=== PATIENT | female | born 1980 | race Caucasian/White ===

== ENCOUNTER 2016-08-16 07:15 | Emergency (ER) | payer BC ==
[2016-08-16 07:35] VITALS: BP 126/88
[2016-08-16] MEDS ORDERED: Ketorolac 60 MG/2 ML SDV IM ONE (08:20)
--- NOTE | 2016-08-16 08:30 | EDM.PDOC ---
ED HPI GENERAL MEDICAL PROBLEM - General Chief Complaint: Back Pain or Injury Stated Complaint: RASH WITH HEADACHE & NECK PAIN Time Seen by Provider: 08/16/16 08:15 Source of Information: Reports: Patient, Family, RN Notes Reviewed History Limitations: Reports: No Limitations - History of Present Illness INITIAL COMMENTS - FREE TEXT/NARRATIVE: 35-year-old female presents emergency department day complaint of rash neck back pain headache and generalized feeling poorly, she states the rash started about 2 days prior it is predominantly on the left side of her chest it is tender to the touch it does not itch this time but it appears to be spreading head and back Pain Score (Numeric/FACES): 8 - Related Data Allergies Allergy/AdvReac Type Severity Reaction Status Date / Time bacitracin Allergy Rash Verified 08/16/16 07:37 [From Neosporin ([id number])] neomycin Allergy Rash Verified 08/16/16 07:37 [From Neosporin ([id number])] polymyxin B Allergy Rash Verified 08/16/16 07:37 [From Neosporin ([id number])] Home Meds: Home Meds Levothyroxine Sodium [Synthroid] 150 mcg PO DAILY 08/16/16 [History] Multivitamin [Multi-Vitamin Daily] 1 each PO DAILY 08/16/16 [History] levETIRAcetam [Keppra] 500 mg PO BID 08/16/16 [History] Past Medical History Gastrointestinal History: Reports: Celiac Disease Musculoskeletal History: Reports: Other (See Below) Other Musculoskeletal History: right arm fx Neurological History: Reports: Seizure Endocrine/Metabolic History: Reports: Hypothyroidism Hematologic History: Reports: Other (See Below) Other Hematologic History: factor 5 d Social & Family History - Tobacco Use Smoking Status *Q: Never Smoker - Caffeine Use Caffeine Use: Reports: Coffee - Alcohol Use Days Per Week of Alcohol Use: 4 Number of Drinks Per Day: 1 Total Drinks Per Week: 4 - Recreational Drug Use Recreational Drug Use: No ED ROS GENERAL - Review of Systems Review Of Systems: See Below Constitutional: Denies: Fever HEENT: Reports: No Symptoms Respiratory: Reports: No Symptoms Cardiovascular: Reports: No Symptoms GI/Abdominal: Reports: No Symptoms : Reports: No Symptoms Musculoskeletal: Reports: Neck Pain, Back Pain Skin: Reports: Rash Neurological: Reports: Headache ED EXAM, GENERAL - Physical Exam Exam: See Below Free Text/Narrative:: Examination of the integument system there is a rash that follows along the dermatome T4 on the left side of the body currently it is patches anterior and posterior there is the start of development of small vesicles rashes consistent with herpes varicella-zoster Course - Vital Signs Last Recorded V/S: Last Vital Signs Temp 96.5 F 08/16/16 07:51 Pulse 84 08/16/16 07:51 Resp 16 08/16/16 07:51 BP 126/88 08/16/16 07:51 Pulse Ox 97 08/16/16 07:51 - Orders/Labs/Meds Meds: Medications Discontinued Medications Generic Name Dose Route Start Last Admin Trade Name Freq PRN Reason Stop Dose Admin Ketorolac Tromethamine 60 mg 08/16/16 08:20 Toradol IM 08/16/16 08:21 ONETIME ONE Departure - Departure Time of Disposition: 08:32 Disposition: Home, Self-Care 01 Condition: Good Clinical Impression: Herpes zoster Qualifiers: Herpes zoster complications: without complications Qualified Code(s): B02.9 - Zoster without complications - Discharge Information Forms: ED Department Discharge Additional Instructions: Take full course of antiviral medication, use hydrocodone as needed for breakthrough pain, Please followup with your primary care provider in 5-7 days if not better, please call return to the emergency department with worsening of symptoms. - Assessment/Plan Plan: Assessment Acuity = acute Site and laterality = shingles exacerbation Etiology = herpes varicella-zoster Manifestations = pain, headache Location of injury = Home Lab values = none Plan Plan is treat with Valtrex 1 g by mouth 3 times a day 7 days and accommodation with hydrocodone total #20 for pain control as needed avoidance of young children without immunization Patient was in agreement with the plan all questions were answered, they were instructed to return to the emergency department or call for worsening symptoms. This note was dictated using [employer] voice recognition software please call with any questions.
== END 2016-08-16 08:51 | disposition home or self-care (01) ==
LOC: JP.ED 07:15 → MERGE 07:15 → JP.ED 08:51
DX: B02.9 Zoster without complications (principal); E03.9 Hypothyroidism, unspecified; Z79.899 Other long term (current) drug therapy; Z88.1 Allergy status to other antibiotic agents
CPT/HCPCS: 96372; 99284; J1885

== ENCOUNTER 2016-08-17 11:33 | Emergency (ER) | payer BC ==
[2016-08-17] MEDS ORDERED: Sodium Chloride 0.9% 10 ML Syringe FLUSH PRN (12:54)
[2016-08-17] MEDS ORDERED: Ondansetron 4 MG/2 ML SDV IVPUSH ONE (12:57)
[2016-08-17] MEDS ORDERED: HYDROmorphone 0.5 MG/0.5 ML Syringe IVPUSH ONE (12:57)
[2016-08-17] MEDS ORDERED: Lactated Ringers 1,000 ML IV SCH (13:00)
--- NOTE | 2016-08-17 13:06 | EDM.PDOC ---
ED HPI GENERAL MEDICAL PROBLEM - General Chief Complaint: General Stated Complaint: HEAD/NECK PAIN/NAUSEA/VOMITING Time Seen by Provider: 08/17/16 12:48 Source of Information: Reports: Patient, Family, RN Notes Reviewed History Limitations: Reports: No Limitations - History of Present Illness INITIAL COMMENTS - FREE TEXT/NARRATIVE: 35-year-old female presents emergency department today with increasing neck pain and headache pain, she was in the ED yesterday with development of a rash that is probably in the T4 recent diagnosis of shingles exacerbation treatment of Valtrex and hydrocodone. She states the rash has progressed slightly but she is tolerating that but now she has a severe headache rates it 10 out of 10 with neck pain she can place her chin on her chest but it causes exquisite pain she is also nauseated she denies any overt fevers but she has had chills Headache Pain Score (Numeric/FACES): 10 - Related Data Allergies Allergy/AdvReac Type Severity Reaction Status Date / Time bacitracin Allergy Rash Verified 08/16/16 07:37 [From Neosporin ([id number])] neomycin Allergy Rash Verified 08/16/16 07:37 [From Neosporin ([id number])] polymyxin B Allergy Rash Verified 08/16/16 07:37 [From Neosporin ([id number])] Home Meds: Home Meds Levothyroxine Sodium [Synthroid] 150 mcg PO DAILY 08/16/16 [History] Multivitamin [Multi-Vitamin Daily] 1 each PO DAILY 08/16/16 [History] levETIRAcetam [Keppra] 500 mg PO BID 08/16/16 [History] Past Medical History Gastrointestinal History: Reports: Celiac Disease Musculoskeletal History: Reports: Other (See Below) Other Musculoskeletal History: right arm fx Neurological History: Reports: Seizure Endocrine/Metabolic History: Reports: Hypothyroidism Hematologic History: Reports: Other (See Below) Other Hematologic History: factor 5 d Social & Family History - Tobacco Use Smoking Status *Q: Never Smoker - Caffeine Use Caffeine Use: Reports: Coffee - Alcohol Use Days Per Week of Alcohol Use: 4 Number of Drinks Per Day: 1 Total Drinks Per Week: 4 - Recreational Drug Use Recreational Drug Use: No ED ROS GENERAL - Review of Systems Review Of Systems: See Below Constitutional: Reports: Chills. Denies: Fever HEENT: Reports: No Symptoms Respiratory: Reports: No Symptoms Cardiovascular: Reports: No Symptoms GI/Abdominal: Reports: Nausea : Reports: No Symptoms Musculoskeletal: Reports: Neck Pain Skin: Reports: Rash Neurological: Reports: Headache ED EXAM, GENERAL - Physical Exam Exam: See Below Free Text/Narrative:: General: Female moderate discomfort secondary to pain, alert and oriented x3 HEENT: head is atraumatic normocephalic, eyes pupils equal round reactive to light, sclera clear no conjunctivitis appreciated. Nose no septal deviation, nares are clear, no blood present. Mouth mucosa is moist and pink no erythema or exudate noted in soft palate, tongue is midline uvula is midline, dentition is intact. Neck: Supple no thyromegaly no tracheal deviation. Pain is elicited with flex station of the neck Nodes: Cervical nodes subclavicular nodes nontender no palpable lymphadenopathy noted. Lungs: clear to auscultation bilaterally with symmetrical respirations, no adventitious noise appreciated. CV: Regular rate and rhythm S1 and S2 appreciated no murmurs rubs or gallops noted. Abdomen: Soft, nontender, no palpable masses or organomegaly appreciated, no distention no guarding bowel sounds are present, . Neuro: Cranial nerves II through XII grossly intact Skin: Varicella-zoster type rash T4 region Extremities: No lower extremity edema appreciated, pedal pulse is +2. Course - Vital Signs Last Recorded V/S: Last Vital Signs Temp 100.4 F 08/17/16 16:54 Pulse 78 08/17/16 16:54 Resp 16 08/17/16 16:54 BP 119/73 08/17/16 16:54 Pulse Ox 99 08/17/16 16:54 - Orders/Labs/Meds Orders: Active Orders 24 hr Category Date Time Status Peripheral IV Care [RC] . DIRECTED Care 08/17/16 12:54 Active Head wo Cont [CT] Stat Exams 08/17/16 12:57 Taken CULTURE BLOOD [BC] Urgent Lab 08/17/16 13:00 Received CULTURE BLOOD [BC] Urgent Lab 08/17/16 13:10 Received Lactated Ringers [Ringers, Lactated] 1,000 ml Med 08/17/16 13:00 Active IV ASDIRECTED Sodium Chloride 0.9% [Saline Flush] Med 08/17/16 12:54 Active 10 ml FLUSH ASDIRECTED PRN Vancomycin 1,000 mg Med 08/17/16 16:28 Active Dextrose 5% in Water 250 ml IV ONETIME cefTRIAXone [Rocephin] 2 gm Med 08/17/16 16:30 Active Sodium Chloride 0.9% [Normal Saline] 50 ml IV Q24H Blood Culture x2 Reflex Set [OM.PC] Urgent Oth 08/17/16 12:54 Ordered Peripheral IV Insertion Adult [OM.PC] Urgent Ot 08/17/16 12:54 Ordered Medication Orders Lactated Ringer's (Ringers, Lactated) 1,000 mls @ 500 mls/hr IV ASDIRECTED TRISH Last Admin: 08/17/16 13:56 Dose: 500 mls/hr Vancomycin HCl 1,000 mg/ (Dextrose/Water) 250 mls @ 167 mls/hr IV ONETIME ONE Stop: 08/17/16 17:57 Ceftriaxone Sodium 2 gm/ (Sodium Chloride) 50 mls @ 100 mls/hr IV Q24H [facility] Last Admin: 08/17/16 16:43 Dose: 100 mls/hr Sodium Chloride (Saline Flush) 10 ml FLUSH ASDIRECTED PRN PRN Reason: Keep Vein Open Last Admin: 08/17/16 13:32 Dose: 10 ml Labs: Laboratory Tests 08/17/16 08/17/16 08/17/16 Range/Units 13:10 13:10 13:10 WBC 7.8 (4.5-11.0) K/uL RBC 4.36 (3.30-5.50) M/uL Hgb 13.8 (12.0-15.0) g/dL Hct 41.1 (36.0-48.0) % MCV 94 (80-98) fL MCH 32 H (27-31) pg MCHC 34 (32-36) % Plt Count 169 (150-400) K/uL Neut % (Auto) 86 H (36-66) % Lymph % (Auto) 9 L (24-44) % Milam % (Auto) 5 (2-6) % Eos % (Auto) 1 L (2-4) % Baso % (Auto) 0 (0-1) % Sodium 134 L (140-148) mmol/L Potassium 4.1 (3.6-5.2) mmol/L Chloride 100 (100-108) mmol/L Carbon Dioxide 27 (21-32) mmol/L Anion Gap 11.1 (5.0-14.0) mmol/L BUN 7 (7-18) mg/dL Creatinine 0.9 (0.6-1.0) mg/dL Est Cr Clr Drug Dosing 77.33 mL/min Estimated GFR (MDRD) > 60 (>60) Glucose 118 H (74-106) mg/dL Lactic Acid 1.1 (0.4-2.0) mmol/L Calcium 9.2 (8.5-10.1) mg/dL Total Bilirubin 0.7 (0.2-1.0) mg/dL AST 16 (15-37) U/L ALT 18 (12-78) U/L Alkaline Phosphatase 58 (46-116) U/L C-Reactive Protein 0.17 (0.0-0.3) mg/dL Total Protein 7.5 (6.4-8.2) g/dL Albumin 4.0 (3.4-5.0) g/dL Globulin 3.5 (2.3-3.5) g/dL Albumin/Globulin Ratio 1.1 L (1.2-2.2) Meds: Medications Generic Name Dose Route Start Last Admin Trade Name Freq PRN Reason Stop Dose Admin Lactated Ringer's 1,000 mls @ 500 mls/hr 08/17/16 13:00 08/17/16 13:56 Ringers, Lactated IV 500 mls/hr ASDIRECTED TRISH Administration Vancomycin HCl 1,000 mg/ 250 mls @ 167 mls/hr 08/17/16 16:28 Dextrose/Water IV 08/17/16 17:57 ONETIME ONE Ceftriaxone Sodium 2 gm/ 50 mls @ 100 mls/hr 08/17/16 16:30 08/17/16 16:43 Sodium Chloride IV 100 mls/hr Q24H TRISH Administration Sodium Chloride 10 ml 08/17/16 12:54 08/17/16 13:32 Saline Flush FLUSH 10 ml ASDIRECTED PRN Administration Keep Vein Open Discontinued Medications Generic Name Dose Route Start Last Admin Trade Name Freq PRN Reason Stop Dose Admin Fentanyl 100 mcg 08/17/16 14:13 08/17/16 14:32 Sublimaze IVPUSH 08/17/16 14:14 100 mcg ONETIME ONE Administration Hydromorphone HCl 0.5 mg 08/17/16 12:57 08/17/16 13:31 Dilaudid IVPUSH 08/17/16 12:58 0.5 mg ONETIME ONE Administration Acyclovir 700 mg/ Sodium 114 mls @ 250 mls/hr 08/17/16 16:28 Chloride IV 08/17/16 16:55 ONETIME ONE Ondansetron HCl 4 mg 08/17/16 12:57 08/17/16 13:30 Zofran IVPUSH 08/17/16 12:58 4 mg ONETIME ONE Administration Prochlorperazine Edisylate 5 mg 08/17/16 14:55 08/17/16 14:58 Compazine IVPUSH 08/17/16 14:56 5 mg ONETIME ONE Administration Departure - Departure Time of Disposition: 17:00 Disposition: DC/Tfer to Acute Hospital 02 Condition: Fair Clinical Impression: Herpes, meningitis, zoster - Discharge Information Forms: ED Department Discharge - My Orders Last 24 Hours: My Active Orders 08/17/16 12:54 Peripheral IV Care [RC] . DIRECTED Sodium Chloride 0.9% [Saline Flush] 10 ml FLUSH ASDIRECTED PRN Blood Culture x2 Reflex Set [OM.PC] Urgent Peripheral IV Insertion Adult [OM.PC] Urgent 08/17/16 12:57 Head wo Cont [CT] Stat 08/17/16 13:00 CULTURE BLOOD [BC] Urgent Lactated Ringers [Ringers, Lactated] 1,000 ml IV ASDIRECTED 08/17/16 13:10 CULTURE BLOOD [BC] Urgent 08/17/16 16:28 Vancomycin 1,000 mg Dextrose 5% in Water 250 ml IV ONETIME 08/17/16 16:30 cefTRIAXone [Rocephin] 2 gm Sodium Chloride 0.9% [Normal Saline] 50 ml IV Q24H - Assessment/Plan Last 24 Hours: My Active Orders 08/17/16 12:54 Peripheral IV Care [RC] . DIRECTED Sodium Chloride 0.9% [Saline Flush] 10 ml FLUSH ASDIRECTED PRN Blood Culture x2 Reflex Set [OM.PC] Urgent Peripheral IV Insertion Adult [OM.PC] Urgent 08/17/16 12:57 Head wo Cont [CT] Stat 08/17/16 13:00 CULTURE BLOOD [BC] Urgent Lactated Ringers [Ringers, Lactated] 1,000 ml IV ASDIRECTED 08/17/16 13:10 CULTURE BLOOD [BC] Urgent 08/17/16 16:28 Vancomycin 1,000 mg Dextrose 5% in Water 250 ml IV ONETIME 08/17/16 16:30 cefTRIAXone [Rocephin] 2 gm Sodium Chloride 0.9% [Normal Saline] 50 ml IV Q24H Plan: Assessment Acuity = acute Site and laterality = suspected herpetic meningitis complicated patient with known history of seizure disorder and hypothyroidism as well as herpes zoster exacerbation T4 Etiology = herpes zoster Manifestations = pain, headache, neck stiffness, chills Location of injury = Home Lab values = CBC within normal limits except for 86% neutrophils, CMP within normal limits initial CT scan shows no acute process CSF WBCs elevated at 488 rbc's at 8 glucose normal at 57 protein elevated at 147 Gram stain shows no bacteria no WBCs Plan Called and discussed the case with Dr. Mello hospitalist chronometer adjuster at [facility] he kindly accepted the patient in transfer, blood cultures, cerebrospinal fluid culture are pending she is started on antibiotics of ceftriaxone, vancomycin and acyclovir she'll be transported via EMS services ground Patient was in agreement with the plan all questions were answered, they were instructed to return to the emergency department or call for worsening symptoms. This note was dictated using [employer] voice recognition software please call with any questions.
[2016-08-17] MEDS ORDERED: fentaNYL 100 MCG/2 ML SDV IVPUSH ONE ×2 (14:13→16:59)
[2016-08-17] MEDS ORDERED: Prochlorperazine 10 MG/2 ML SDV IVPUSH ONE (14:55)
[2016-08-17] MEDS ORDERED: cefTRIAXone 2 GM in Sodium Chloride 0.9% 50 ML IV SCH (16:30)
[2016-08-17 16:55] VITALS: BP 119/73
--- NOTE | 2016-08-17 17:48 | PN ---
DATE OF SERVICE: 08/17/2016 INDICATIONS: This is a patient of Dr. Douglas Schwartz's in the emergency room. Yesterday, she present to the emergency room and was diagnosed with shingles. Today, she has been running a fever and constant headaches. She has some concerns about this being some kind of viral meningitis and Dr. Schwartz has asked that I come in and perform diagnostic lumbar spinal tap. I discussed the risks and benefits of this with the patient, she has understanding of these, and has signed an informed consent. TECHNIQUE: She was placed in a lateral position. The Betadine prep was carried out x3. A 25-gauge 3-1/2-inch spinal needle was placed into the dural sac at L4-5. There was clear spinal fluid return. The manometer was then attached to the spinal needle and the pressure was somewhere between 9.5 to 10. I then viola 4 samples in order 1, 2, 3, and 4 and these were passed off to the assisting nurse in exactly that ordered and they were labeled accordingly. The spinal needle was then removed and a Band-Aid applied to the puncture. In no time did the patient suffer any paresthesia. Currently, her vital signs are stable. Her color is pink. She is alert, oriented, and will be discharged according to the results of these final tests. PROCEDURE PERFORMED: Diagnostic lumbar spinal tap. Santo Harman CRNA /[id number]
--- NOTE | 2016-08-17 19:18 | PN ---
DATE OF SERVICE: 08/17/2016 ADDENDUM: I did use a 22-gauge 3.5 inch spinal needle, not the 25-gauge. Santo Harman CRNA /[id number]
== END 2016-08-17 17:59 ==
LOC: JP.ED 11:33 → MERGE 11:33 → JP.ED 17:59
DX: B02.1 Zoster meningitis (principal); E03.9 Hypothyroidism, unspecified; Z79.899 Other long term (current) drug therapy
CPT/HCPCS: 36415; 62270; 70450; 80053; 82945; 83605; 84157; 85025; 86140; 87040; 87070; 87205; 89050; 96361; 96365; 96368; 96375; 99284; J0133; J0696; J0780; J1170; J2405; J3010; J3370; J7030; J7050; J7060; J7120